=== PATIENT | female | born 1960 | race Caucasian/White ===

== ENCOUNTER 2023-01-12 14:45 | Emergency (ER) | payer OTHER, SELFPAY ==
--- NOTE | 2023-01-12 14:54 | ED.GENADULT ---
HPI - General Adult General Chief complaint: Unspecified Stated complaint: High B/P Time Seen by Provider: 01/12/23 15:27 Mode of arrival: ambulatory Limitations: no limitations History of Present Illness HPI narrative: 62-year-old female presents with concern for high blood pressure. Reports she recently had of cough related to her lisinopril so she was switched to losartan. Reports she has been on losartan for about a week and a half, she did a rhythm check her blood pressure today and it was very high. She reports she took a 2nd dose of her losartan and came here. She denies any symptoms such as headache, chest pain, blurry vision, shortness of breath, dizziness, syncope or near syncope. She is getting ready to travel for business. She left a message for her primary care doctor. MD complaint: HTN Related Data Home Medications Medication Instructions Recorded Confirmed losartan 25 mg tablet 25 mg PO DAILY 01/12/23 01/12/23 rosuvastatin 10 mg tablet 10 mg PO DAILY 01/12/23 01/12/23 Allergies Allergy/AdvReac Type Severity Reaction Status Date / Time lisinopril AdvReac Intermediate Cough Verified 01/12/23 15:24 Review of Systems Review of Systems: CONSTITUTIONAL: Denies malaise, chills, sweats, or fever. EYES: Denies visual changes, redness, or discharge. CARDIOVASCULAR: Denies chest pain, palpitations, or edema. RESPIRATORY: Denies cough or dyspnea. NEUROLOGIC: Denies numbness, weakness, or headache. All systems reviewed & are unremarkable except as noted in HPI and below PMFSH Comments At time of signature, agree with nursing past medical, surgical, social and family history. There is no relevant family history pertinent to the presenting complaint Exam Narrative: GENERAL: Well-appearing, well-nourished, and in no acute distress. HEAD: Normocephalic, atraumatic. EYES: PERRLA, sclera clear, and EOMI. ENT: Nares clear. Mucous membranes moist. NECK: Supple. CHEST: No respiratory distress. Clear to auscultation. No bony deformities, no asymmetry. Speaks in full sentences. HEART: Regular rate and rhythm. No murmur heard. Normal peripheral pulses. SKIN: Warm, dry, no visible rash. NEURO: Alert and oriented x3. PSYCH: Normal mood and affect Course Course Emergency Course: Discussed options of further evaluation emergency room versus following up with her doctor, patient is not symptomatic, she would prefer to follow-up with her doctor. Through shared decision making was decided she will take her losartan twice daily and will call her doctor in the morning. She understands reasons to go to the emergency room. Patient is aware of, understands and agrees to treatment plan. Anticipatory guidance given. Patient agrees to follow-up as directed and is aware of reasons to seek care at the emergency department. Portions of this record may have been created with voice recognition software Level of Care: Express Care Visit Vital Signs Vital signs: Reviewed. Medical Decision Making MDM Narrative Medical decision making narrative: Exam findings and imaging show no acute concerns or changes; patient is non-toxic appearing and is in no distress. Patient is appropriate for outpatient treatment and follow-up. Critical Care Time Critical Care Time Critical Care Time: No Discharge Plan Discharge Clinical Impression: High blood pressure Patient Disposition: Home, Self-Care Condition: Stable Instructions: Hypertension (ED) Additional Instructions: 1) Please follow-up with your primary care doctor in the next 1-2 days. 2) If you have any worsening of symptoms or any other urgent concerns please go to the ER. 3) Please take was started twice daily until you can stick with your primary care doctor. 4) Please read and follow information included in discharge instructions. Prescriptions: New losartan 25 mg tablet 25 mg PO BID Qty: 14 0RF No Action lisinopril 10 mg tablet 10
[2023-01-12 15:03] VITALS: BP 191/70; PULSE 60; RESP 16; TEMP 36.3; O2SAT 100
[2023-01-12 15:46] VITALS: BP 190/110
== END 2023-01-12 15:46 | disposition home or self-care (01) ==
PROVIDERS: Emergency Provider Nurse Practitioner; PCP Nurse Practitioner Family
DX: R03.0 Elevated blood-pressure reading, without diagnosis of hypertension (principal)
CPT/HCPCS: 99213; G0463